=== PATIENT | female | born 1990 | race African-American/Black ===

== ENCOUNTER → 2017-06-17 | Outpatient (CLI) | payer OTHER ==
--- NOTE | ~2017-06-17 | CR170 ---
[facility] A Service of [facility] & [facility] RADIOLOGY TEXT RESULTS PATIENT: ASHLEY GUO LOCATION: [facility] : [birth year] UNIT #: [id number] AGE: [address]: JOSE REYES APR SEX: F ORDER DR: [id number] [facility] [address]. [place], [place] [address] [id number] O MR#: [id number] Acc #: [id number] NAME: ASHLEY GUO : 1990 SEX: F STUDY DATE/TIME: 06/17/2017 10:57 UNIT: [facility] ROOM: STUDY DESCRIPTION: CR Knee 2 Views Rt Attending Physician: Jose Reyes Aprn Referring Physician: Jose Reyes Aprn Ordering Physician: Jose Reyes Aprn Primary Care Physician: [facility] MEDICAL IMAGING REPORT This report is preliminary unless electronic signature is present EXAM Right knee 2 views 06/17/2017 HISTORY Right knee pain for 2 years worsening in the last few months. No known injury. FINDINGS AP and lateral projection of the knee shows smooth articular anatomy without indication of fracture or dislocation at the major weight-bearing surface of the knee. There is no indication of radiopaque foreign body about the knee surface or joint effusion. IMPRESSION Normal knee. Dictated by... Gregory Noble M.D. THIS IS AN ELECTRONICALLY VERIFIED REPORT Gregory Noble M.D. at 06/18/2017 7:27 AM TC/cami TD: 06/17/2017 18:22 JOB #: [id number] MEDICAL IMAGING REPORT Page 1 of 1 COPY
--- NOTE | ~2017-06-17 | CR169 ---
[facility] A Service of [facility] & [facility] RADIOLOGY TEXT RESULTS PATIENT: ASHLEY GUO LOCATION: [facility] : 88 UNIT #: [id number] AGE: [address]: JOSE REYES APR SEX: F ORDER DR: [id number] [facility] [address]. [place], [place] [address] [id number] O MR#: [id number] Acc #: [id number] NAME: ASHLEY GUO : 1990 SEX: F STUDY DATE/TIME: 06/17/2017 10:57 UNIT: [facility] ROOM: STUDY DESCRIPTION: CR Knee 2 Views Lt Attending Physician: Jose Reyes Aprn Referring Physician: Jose Reyes Aprn Ordering Physician: Jose Reyes Aprn [facility] REPORT This report is preliminary unless electronic signature is present EXAM Left knee 2 views 06/17/2017 HISTORY Left knee pain for 2 years, worsening in the last 2 months. History of left knee ACL repair in 2003. FINDINGS 2 views of the left knee demonstrate no fracture. There are postsurgical changes of prior anterior cruciate ligament repair. The bones are normally mineralized. There is no joint effusion. IMPRESSION Postsurgical changes left knee. No acute abnormality. Dictated by... Gregory Noble M.D. THIS IS AN ELECTRONICALLY VERIFIED REPORT Gregory Noble M.D. at 06/18/2017 7:27 AM Mickey TD: 06/17/2017 18:27 JOB #: [id number] MEDICAL IMAGING REPORT Page 1 of 1 COPY
== END | disposition home or self-care (01) ==
LOC: CRAD 10:44
DX: M25.561 Pain in right knee (principal); Z98.890 Other specified postprocedural states
CPT/HCPCS: 73560